=== PATIENT | female | born 1970 | race Caucasian/White ===

== ENCOUNTER 2021-04-14 10:48 | Outpatient (CLI) | payer OTHER, SELFPAY ==
--- NOTE | 2021-04-14 10:56 | MM_ITS ---
WS: [id number] BILATERAL SCREENING MAMMOGRAM WITH MICHELLE DISPLACEMENT VIEWS. CAD PERFORMED. HISTORY: SCREENING COMPARISON: 06/01/2019 and 01/15/2018 Bilateral craniocaudal and mediolateral like views are performed. Michelle displacement views in CC and MLO projection also performed. Breasts composition: There are scattered areas of fibroglandular density. Implants are intact. No suspicious masses or calcifications. No nipple retraction. There are small ax illary lymph nodes. MM/[id number] IMPRESSION: BI-RADS: 2-Benign FOLLOW-UP: 1 Year Follow-up
== END 2021-04-14 10:49 | disposition home or self-care (01) ==
LOC: RADSHAW 10:55
PROVIDERS: Visit Provider Nurse Practitioner Women's Health
DX: Z12.31 Encounter for screening mammogram for malignant neoplasm of breast (principal)
CPT/HCPCS: 77067